=== PATIENT | female | born 1980 | race Two or more races ===

== ENCOUNTER 2017-12-20 06:45 | Day surgery (SDC) | payer OTHER ==
[2017-12-20] VITALS (8 sets, daily range): BP systolic 107–137; BP diastolic 62–90
[~2017-12-20] VITALS: Ht 157.5 cm; Wt 73.5 kg
[~2017-12-20 06:45] MED LIST: ceFAZolin 1gm in D5W 55ml IVPB ONE; celeBREX 200mg Cap **SURGERY PATIENTS ONLY ORAL ONE; oxyCONTIN 20mg tab ORAL ONE
--- NOTE | 2017-12-20 07:03 | Pre-Procedure Note/Attestation ---
Pre-Procedure Note/Attestation Complete Prior to Procedure Planned Procedure: right Procedure Narrative: knee arthroscopy, manipulation under anesthesia Indications for Procedure Pre-Operative Diagnosis: right knee internal derangement/arthrofibrosis Attestation I attest that I discussed the nature of the procedure; its benefits; risks and complications; and alternatives (and the risks and benefits of such alternatives ), prior to the procedure, with the patient (or the patient's legal insurance service representative). I attest that, if there was a reasonable possibility of needing a blood transfusion, the patient (or the patient's legal insurance service representative) was given the [facility] standardized written summary, pursuant to the [employer]ie [employer] Blood Safety Act ([place] Health and Safety Code # 1645, as amended). I attest that I re-evaluated the patient just prior to the surgery and that there has been no change in the patient's H&P, except as documented below: Mega Marie MD Dec 20, 2017 07:03
--- NOTE | 2017-12-20 07:03 | Operative Note - PDOC ---
Operative Note Operative Note Pre-op Diagnosis: right knee internal derangement/arthrofibrosis Procedure: see op report Post-op Diagnosis: same as pre-op plus Operative Findings: consistent w/pre-op dx studies Anesthesia: MAC Specimen: none Complications: none Condition: stable Estimated Blood Loss: none Implant(s) used?: No Mega Marie MD Dec 20, 2017 07:03
[2017-12-20] MEDS ORDERED: D5 1/2NS 1,000 ML IV SCH (07:15)
[2017-12-20] MEDS ORDERED: Norco 5mg/325mg tab ORAL PRN (07:15)
[2017-12-20] MEDS ORDERED: Tylenol #3 tab (300mg/30mg) ORAL PRN (07:15)
[2017-12-20] MEDS ORDERED: HYDROmorphone 1mg/ml Carpuject SUBQ PRN (07:15)
[2017-12-20] MEDS ORDERED: NKM (07:27)
[2017-12-20] MEDS ORDERED: LR 1000ml 1,000 ML IVLG SCH (07:44)
--- NOTE | 2017-12-20 07:44 | Anethesia Preoperative Eval ---
Anesthesia Pre-op PMH/ROS General Date of Evaluation: Dec 20, 2017 Anesthesiologist: Louis ASA Score: ASA 1 Mallampati Score Class I : Soft palate, uvula, fauces, pillars visible Class II: Soft palate, uvula, fauces visible Class III: Soft palate, base of uvula visible Class IV: Only hard plate visible Mallampati Classification: Class III Surgeon: Frank Diagnosis: Right knee internal derangement Surgical Procedure: Right knee arthroscopy and synovectomy Anesthesia History: none Family History: no anesthesia problems Allergies: Coded Allergies: No Known Allergies (Unverified , 12/19/17) Medications: see eMAR Past Medical History Cardiovascular: Denies: HTN, CAD, GA, valve dz, arrhythmia, other Pulmonary: Denies: asthma, COPD, PRIMITIVO, other Gastrointestinal/Genitourinary: Denies: GERD, CRI, ESRD, other Neurologic/Psychiatric: Denies: dementia, CVA, depression/anxiety, TIA, other Endocrine: Denies: DM, hypothyroidism, steroids, other HEENT: Denies: cataract (L), cataract (R), glaucoma, [place] (L), [place] (R), other Hematology/Immune: Denies: anemia, DVT, bleeding disorder, other Musculoskeletal/Integumentary: Denies: OA, RA, DJD, DDD, edema, other Other: other - overweight PSxH Narrative: Right knee sx Anesthesia Pre-op Phys. Exam Physician Exam Last Vital Signs Date Time Temp Pulse Resp B/P (MAP) Pulse Ox O2 Delivery O2 Flow Rate FiO2 12/20/17 07:30 Room Air 12/20/17 07:20 96.9 73 18 116/73 (87) 96 96.9 Constitutional: NAD Cardiovascular: RRR Respiratory: CTA Airway Exam Mallampati Score: Class III MO: limited ROM: limited Teeth: intact Anesthesia Pre-op A/P Labs see chart Urine Test Test 12/20/17 07:00 Urine HCG, Qualitative Negative (NEGATIVE) Risk Assessment & Plan Assessment: ASA I Plan: GA Status Change Before Surgery: No Pre-Antibiotics Drug: Ancef 1g Given Within 1 Hr of Incision: Yes Michelle Srinivasan MD Dec 20, 2017 07:44
[2017-12-20] MEDS ORDERED: Midazolam 2mg/2ml Inj IVP PRN (07:45)
[2017-12-20] MEDS ORDERED: DiphenhydrAMINE 50mg/ml Inj IVP PRN (07:45)
[2017-12-20] MEDS ORDERED: fentaNYL 100 mcg/2 mL IV PRN (07:45)
[2017-12-20] MEDS ORDERED: LORazepam Inj 2mg/ml 1ml IV PRN (07:45)
[2017-12-20] MEDS ORDERED: Labetalol 5mg/ml 20ml vial IV PRN (07:45)
[2017-12-20] MEDS ORDERED: Ketorolac 30mg Inj IV PRN (07:45)
[2017-12-20] MEDS ORDERED: Hydromorphone 0.5mg/0.5ml inj IVP PRN (07:45)
[2017-12-20] MEDS ORDERED: Lidocaine 1% MPF 10mg/ml 5ml ONE (07:55)
[2017-12-20] MEDS ORDERED: Propofol 200mg/20ml IV ONE (07:55)
[2017-12-20] MEDS ORDERED: Midazolam 2mg/2ml Inj ONE (07:56)
[2017-12-20] MEDS ORDERED: fentaNYL 100 mcg/2 mL IV ONE (07:56)
[2017-12-20] MEDS ORDERED: Ketorolac 30mg Inj ONE ×2 (08:33→08:44)
[2017-12-20] MEDS ORDERED: EPINEPHrine 1mg/1ml Amp ONE (08:43)
[2017-12-20] MEDS ORDERED: Morphine Sulfate PF 10 ML ONE (08:43)
[2017-12-20] MEDS ORDERED: Kenalog-40 1ml Vial ONE (08:44)
[2017-12-20] MEDS ORDERED: Lidocaine 1% 10mg/ml/Epi 0.005mg/ml 30ml vial INJ ONE (08:44)
[2017-12-20] MEDS ORDERED: LR 1000ml ONE (09:00)
[2017-12-20] MEDS ORDERED: NS Irrig 4000ml IRRIG ONE (09:00)
[2017-12-20] MEDS: Bupivacaine 0.25% Inj 30ml INJ ONE ×2 (09:20→09:21)
--- NOTE | 2017-12-20 09:23 | Immediate Post-Op Evaluation ---
Immediate Post-Op Evalulation Immediate Post-Op Evalulation Procedure: Right knee artrhroscopy and synovectomy Date of Evaluation: Dec 20, 2017 Time of Evaluation: 10:00 IV Fluids: 600 Blood Products: 0 Estimated Blood Loss: min Urinary Output: 0 Blood Pressure Systolic: 107 Blood Pressure Diastolic: 62 Pulse Rate: 80 Respiratory Rate: 16 O2 Sat by Pulse Oximetry: 97 Temperature (Fahrenheit): 97.7 Pain Score (1-10): 0 Nausea: No Vomiting: No Complications 0 Patient Status: awake, reacts, patent, none Hydration Status: adequate Drug: Ancef 1g Given Within 1 Hr of Incision: Yes Time Given: 09:10 Michelle Srinivasan MD Dec 20, 2017 09:23
--- NOTE | 2017-12-20 09:24 | 48 Hour Post Anesthesia Eval ---
Post Anesthesia Evaluation Procedure: Right knee artrhroscopy and synovectomy Date of Evaluation: Dec 20, 2017 Time of Evaluation: 10:54 Blood Pressure Systolic: 120 0: 90 Pulse Rate: 78 Respiratory Rate: 16 Temperature (Fahrenheit): 98 O2 Sat by Pulse Oximetry: 99 Airway: patent Nausea: No Vomiting: No Pain Intensity: 0 Hydration Status: adequate Cardiopulmonary Status: at baseline Mental Status/LOC: patient returned to baseline Post-Anesthesia Complications: 0 Follow-up care needed: ready to discharge Michelle Srinivasan MD Dec 20, 2017 09:24
--- NOTE | 2017-12-20 19:00 | Operative Note - Dictated ---
DATE OF OPERATION: 12/20/2017 PREOPERATIVE DIAGNOSIS: Right knee arthrofibrosis, status post patellar reconstruction. POSTOPERATIVE DIAGNOSES: 1. Right knee arthrofibrosis, status post patellar reconstruction. 2. 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 3. Right knee anterior horn of medial meniscus tear. PROCEDURES: 1. Right knee partial medial meniscectomy. 2. Right knee diagnostic arthroscopy and synovectomy of medial, lateral, and patellofemoral compartment. 3. Manipulation under anesthesia, right knee. SURGEON: Mega Marie M.D. ANESTHESIA: MAC with local. INDICATION FOR PROCEDURE: The patient is a pleasant female, who had undergone reconstruction and significant pain and difficulty going up and down stairs and has significant arthrofibrosis. After failing conservative treatment, she elected to undergo right knee manipulation under anesthesia and diagnostic arthroscopy. Risks, limitations, expectations, and complications of the procedure were discussed in detail. All questions were addressed. DESCRIPTION OF PROCEDURE: After informed consent was obtained, the patient was brought to the operating room. We placed the patient under monitored anesthesia control. Tourniquet was applied to the right proximal thigh. Right leg was prepped and draped in a sterile manner. Time-out was performed. Portal sites were injected with 1% lidocaine with epinephrine. At this point, examination under anesthesia was performed and the patient completely anesthetized. The knee flexed to approximately 105 degrees with a firm end block. At this point, gentle manipulation under anesthesia was performed to allow to flex to approximately 130 degrees. Once the manipulation under anesthesia was completed, Esmarch was used to exsanguinate the extremity. Inferolateral stab incision was then made. Trocar was introduced into the knee joint. There was significant scar tissue in the retropatellar space area making the visualization difficult. Medial compartment was entered. There was hypertrophic scar tissue in the medial and lateral gutters. Hematoma was evacuated. Medial working portal was established and the hematoma was evacuated. Once that was done, there were multiple adhesions in the anterior compartment of the medial and lateral compartment as well as the intercondylar notch. There was no chondral damage in the medial compartment. The posterior horn and middle body of the meniscus was probed and noted to be intact. There was a small tear of the anterior horn of medial meniscus. Partial meniscectomy was performed. Once this was done, synovectomy was completed in the medial compartment extending to the intercondylar notch and lateral compartment. The ACL was probed and noted to be intact. Lateral compartment was entered and free of any meniscal or chondral damage. At this point, the camera was placed in the patellofemoral compartment consistent with fat pad and synovial tissue was performed. Once this was completely removed including the adhesions, there was grade 2 chondral damage in the trochlear groove. At that point, the instruments were removed. Portal sites were closed using 3-0 Monocryl sutures. Steri-Strips and a sterile dressing were applied. The patient was awoken and taken to recovery room with stable vital signs. ESTIMATED BLOOD LOSS: None. COMPLICATIONS: None. SPECIMENS: None. IMPLANTS: None. Mega Marie M.D. DR: SARAH JOB#: [id number] CC: REGGIE
== END 2017-12-20 12:15 | disposition home or self-care (01) ==
LOC: SUR 06:45
DX: M24.661 Ankylosis, right knee (principal); S83.241A Other tear of medial meniscus, current injury, right knee, initial encounter; X58.XXXA Exposure to other specified factors, initial encounter; Y93.9 Activity, unspecified; Y92.9 Unspecified place or not applicable; Z90.49 Acquired absence of other specified parts of digestive tract
CPT/HCPCS: 27570; 29876; 29881; 81025; J0171; J0690; J1885; J2250; J2274; J2405; J2704; J3010; J3301; J3490; J7120; 94003; 94150